=== PATIENT | male | born 1940 | race Caucasian/White ===

== ENCOUNTER 2017-11-23 06:55 | Day surgery (SDC) | payer MEDICARE ==
[~2017-11-23] VITALS: Ht 165.1 cm; Wt 71.6 kg
== END 2017-11-23 08:42 | disposition home or self-care (01) ==
LOC: ORSCSDS 06:55
PROVIDERS: Ophthalmology
PROC: 08RJ3JZ Replacement of Right Lens with Synthetic Substitute, Percutaneous Approach (ICD-10-PCS; principal; 2017-11-23 08:00)
DX: H25.11 Age-related nuclear cataract, right eye (principal)
CPT/HCPCS: J2250; J3301; J7040; V2632

== ENCOUNTER 2017-12-07 07:47 | Day surgery (SDC) | payer MEDICARE ==
[~2017-12-07] VITALS: Ht 177.8 cm; Wt 71.4 kg
[2017-12-07] MEDS ORDERED: RANI150EL (08:05)
[2017-12-07] MEDS ORDERED: CALCA400CH (08:06)
[2017-12-07] MEDS ORDERED: Hair, Skin & N1 EACH (08:06)
[2017-12-07] MEDS ORDERED: VITAMIN D3400 UNIT (08:06)
[2017-12-07] MEDS ORDERED: GLUC500 (08:07)
[2017-12-07] MEDS ORDERED: DIPH50 (08:07)
== END 2017-12-07 09:16 | disposition home or self-care (01) ==
LOC: ORSCSDS 07:47
PROVIDERS: Ophthalmology
PROC: 08RK3JZ Replacement of Left Lens with Synthetic Substitute, Percutaneous Approach (ICD-10-PCS; principal; 2017-12-07 09:00)
DX: H25.12 Age-related nuclear cataract, left eye (principal)
CPT/HCPCS: J2250; J3010; J3301; J7120; V2632